=== PATIENT | female | born 1980 | race Caucasian/White ===

== ENCOUNTER → 2024-06-25 09:14 | Outpatient (REF) | payer OTHER, SELFPAY | LOC: WDC 09:14 | PROVIDERS: ATTENDING PHYSICIAN Obstetrics & Gynecology; FAMILY PHYSICIAN Family Medicine | DX: N60.29 Fibroadenosis of unspecified breast (principal); R92.8 Other abnormal and inconclusive findings on diagnostic imaging of breast; N64.4 Mastodynia | CPT/HCPCS: 77062; 77066 ==

== ENCOUNTER → 2025-06-26 08:23 | Outpatient (REF) | payer OTHER, SELFPAY | LOC: HWWDC 08:23 | PROVIDERS: ATTENDING PHYSICIAN Obstetrics & Gynecology | DX: Z12.31 Encounter for screening mammogram for malignant neoplasm of breast (principal) | CPT/HCPCS: 77063; 77067 ==